=== PATIENT | female | born 1990 ===

== ENCOUNTER 2016-11-11 17:57 | Emergency (ER) | payer MEDICAID ==
[2016-11-11 18:09] VITALS: RESP 18; O2SAT 99
--- NOTE | 2016-11-11 20:18 | C.PDOC ---
History Of Present Illness 26 year old female presents to the ED for evaluation of right ankle pain after she twisted the area at home yesterday. Patient notes the pain has worsened today and reports to the ED for further evaluation. She denies head injury/LOC or extremity numbness/weakness. Time Seen by Provider: 11/11/16 18:34 Chief Complaint (Nursing): Lower Extremity Problem/Injury History Per: Patient History/Exam Limitations: no limitations Onset/Duration Of Symptoms: Hrs Current Symptoms Are (Timing): Still Present Additional History Per: Patient - Knee Description Of Injury: Twisted. denies: Struck With Object, Struck Against Object, Laceration Past Medical History Reviewed: Historical Data, Nursing Documentation, Vital Signs Vital Signs: Last Vital Signs Temp 98.2 F 11/11/16 20:45 Pulse 73 11/11/16 20:45 Resp 18 11/11/16 20:45 BP 112/65 11/11/16 20:45 Pulse Ox 99 11/11/16 23:10 - Medical History PMH: No Chronic Diseases Surgical History: No Surg Hx Family History: States: Unknown Family Hx - Social History Hx Alcohol Use: No Hx Substance Use: No - Immunization History Hx Tetanus Toxoid Vaccination: No Hx Influenza Vaccination: No Hx Pneumococcal Vaccination: No Review Of Systems Musculoskeletal: Positive for: Other (right ankle pain ) Neurological: Negative for: Weakness, Numbness Physical Exam - Physical Exam Appears: Non-toxic, No Acute Distress Skin: Normal Color, Warm, Dry Extremity: No Normal ROM (decreased due to pain with ambulation ), Tenderness ( mild to right lateral malleolus ), Capillary Refill (less than 2 seconds ), No Deformity, Swelling (mild to right lateral malleolus ) Pulses: Right Dorsalis Pedis: Normal Neurological/Psych: Normal Speech, Normal Cognition, Normal Motor, Normal Sensation Gait: Steady ED Course And Treatment O2 Sat by Pulse Oximetry: 99 (on RA) Pulse Ox Interpretation: Normal Progress Note: Right ankle XR ordered, results are unremarkable. Patient received Motrin PO. Air cast applied to right ankle by CP and checked by me. Patient was instructed on how to use crutches. On reassessment, patient is resting comfortably, and is stable for discharge. Advised to f/u with orthopedic care within 1-2 days for further evaluation. Disposition - Disposition Referrals: Hilario Strickland III, MD [Staff Provider] - Disposition: HOME/ ROUTINE Disposition Time: 20:16 Condition: STABLE Additional Instructions: Follow up with PMD and Orthopedist within 1-2 days. Return to Ed if feel worse. 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 - Scribe Statement The provider has reviewed the documentation as recorded by the Scribe (Lulú Wu) All medical record entries made by the Scribe were at my direction and personally dictated by me. I have reviewed the chart and agree that the record accurately reflects my personal performance of the history, physical exam, medical decision making, and the department course for this patient. I have also personally directed, reviewed, and agree with the discharge instructions and disposition.
[2016-11-11 20:46] VITALS: BP 112/65; PULSE 73; TEMP 98.2
--- NOTE | 2016-11-12 11:33 | RAD ---
PROCEDURE: Right Ankle Radiographs. HISTORY: twisted yesterday COMPARISON: None FINDINGS: BONES: Incidental bone island near medial tibial plafond. No fracture. JOINTS: Normal. No osteoarthritis. Ankle mortise maintained. Talar dome intact SOFT TISSUES: Soft-tissue swell OTHER FINDINGS: None. IMPRESSION: Soft tissue swelling. No fracture
== END 2016-11-11 20:47 | disposition home or self-care (01) ==
LOC: C.ER 17:57
DX: S93.401A Sprain of unspecified ligament of right ankle, initial encounter (principal); X58.XXXA Exposure to other specified factors, initial encounter; Y92.009 Unspecified place in unspecified non-institutional (private) residence as the place of occurrence of the external cause